=== PATIENT | female | born 1975 | race Caucasian/White ===

== ENCOUNTER → 2022-08-21 07:28 | Outpatient (BNVA) | payer BC, SELFPAY | PROVIDERS: PCP Internal Medicine; Visit Provider Physician Assistant | DX: Z13.89 Encounter for screening for other disorder (principal) ==

== ENCOUNTER 2022-08-21 08:01 | Outpatient (REF) | payer BC, SELFPAY ==
[2022-08-21 11:19] LABS: MANUAL DIFF FLAG NO
[2022-08-21 11:38] LABS: Basophils Absolute Auto 0.1 X10*3/uL (0.0-0.2); Basophils Percent Auto 0.8 % (0-2); Eosinophils Absolute Auto 0.2 X10*3/uL (0.0-0.4); Eosinophils Percent Auto 2.8 % (0-4); Hemoglobin 13.4 g/dl (12.0-16.0); Imm Gran Abs Auto 0.02 X10*3/uL (0.00-0.03); Imm Gran Pct Auto 0.3 % (0.0-0.4); Lymphocytes Absolute Auto 1.9 X10*3/uL (1.2-4.9); Lymphocytes Percent Auto 29.5 % (20-40); Mean Corpuscular HGB Conc 34.4 g/dl (31.0-35.0); Mean Corpuscular Hemoglobin 31.8 pg (27.0-33.0); Mean Corpuscular Volume 92.6 fL (80.0-98.0); Mean Platelet Volume 10.3 fL (9.4-12.3); Monocytes Absolute Auto 0.5 X10*3/uL (0.1-1.2); Monocytes Percent Auto 7.3 % (2-11); Neutrophils Absolute Auto 3.8 x10*3/uL (2.0-8.3); Neutrophils Percent Auto 59.3 % (45-73); Platelet Count 284 X10*3/uL (160-400); Red Blood Count 4.21 X10*6/uL (4.20-5.50); Red Cell Distribution Width 11.7 % (11.0-16.0); White Blood Count 6.4 X10*3/uL (4.8-10.8)
[2022-08-21 12:42] LABS: Alanine Aminotransferase 8 U/L (0-31); Albumin Level 4.2 g/dL (3.5-5.0); Alkaline Phosphatase 53 U/L (39-117); Anion Gap 12 (12-20); Aspartate Amino Transferase 15 U/L (5-31); Bilirubin Total 0.8 mg/dL (0.0-1.0); Blood Urea Nitrogen 16 mg/dL (9-16); Calcium 9.2 mg/dL (8.4-10.2); Carbon Dioxide 26 mmol/L (22-29); Chloride 108 mmol/L (96-108); Cholesterol 123 mg/dL; Estimated Glomerular Filt Rate > 60; Glucose Fasting 89 mg/dL (60-99); HDL Cholesterol 42 mg/dL; LDL Cholesterol Calculated 71 mg/dl; Potassium 4.5 mmol/L (3.3-5.1); Sodium 141 mmol/L (135-145); Total Protein 6.8 g/dL (6.5-8.0); Triglycerides 53 mg/dL
[2022-08-21 13:03] LABS: TSH reflex Free T4 1.12 uIU/mL (0.32-4.0); Vitamin D 25-OH Total 19.9 ng/mL (>30)
[2022-08-21 14:35] LABS: Folate 14.4 ng/mL (> or = 4.0); Vitamin B12 524 pg/mL (200-900)
== END 2022-08-21 08:02 | disposition home or self-care (01) ==
LOC: HO.WFDLDS 08:01
PROVIDERS: Visit Provider Nurse Practitioner Family
DX: Z00.00 Encounter for general adult medical examination without abnormal findings (principal); Z13.29 Encounter for screening for other suspected endocrine disorder; Z13.1 Encounter for screening for diabetes mellitus; Z13.220 Encounter for screening for lipoid disorders
CPT/HCPCS: 36415; 80053; 80061; 82306; 82607; 82746; 84443; 85025

== ENCOUNTER 2023-12-24 06:50 | Day surgery (SDC) | payer BC, SELFPAY ==
[2023-12-20 14:12] VITALS: BMI 26.5
--- NOTE | 2023-12-23 11:38 | HO.ANESPROP2 ---
Documented by User: Sonali Randolph NP 12/23/23 11:39 HPI - Anesthesia Eval Consult details Narrative: 48yo F for Colonoscopy PMFSH Active Problems Active Problems: All Active Problems Low vitamin D level (Acute) Screening for breast cancer (Acute) Overweight (BMI 25.0-29.9) (Acute) Screening for colon cancer (Acute) Hard of hearing (Acute) Screening for hypothyroidism (Acute) Screening for hyperlipidemia (Acute) Screening for diabetes mellitus (Acute) Adult general medical exam (Acute) Past Medical History Medical History Urinary incontinence Family History Family History Mother No problems noted. Father CVA (cerebral vascular accident) Diabetes Surgical History Surgical History Hx of cholecystectomy Social History Social History Household Members Other:: 2 kids Housing: House Patient Tobacco Use Status: Never used Tobacco Are you DNR?: No Advance Directives: No Advance Directives Information Provided: Yes Nutrition Risks: No Nutritional Risk FDLMP: IUD service: No Current occupational status: employed Cognitive needs: No Hearing needs: Yes (bilateral hearing aids) Vision needs: Yes Meds Allergies Allergy/AdvReac Type Severity Reaction Status Date / Time No Known Allergies Allergy Verified 12/24/23 07:51 Exam Height,Weight and Vital Signs: Height 5 ft 6 in Weight 74.389 kg Assessment and Plan Assessment Anesthesia Assessment: Chart Reviewed Documented by User: Violette Ceja MD 12/24/23 08:25 PMFSH Past Medical History Medical History Urinary incontinence Family History Family History Mother No problems noted. Father CVA (cerebral vascular accident) Diabetes Surgical History Surgical History Hx of cholecystectomy History of Problems with Anesthesia: No Social History Social History Household Members Other:: 2 kids Housing: House Patient Tobacco Use Status: Never used Tobacco Are you DNR?: No Advance Directives: No Advance Directives Information Provided: Yes Nutrition Risks: No Nutritional Risk FDLMP: IUD service: No Current occupational status: employed Cognitive needs: No Hearing needs: Yes (bilateral hearing aids) Vision needs: Yes Meds Allergies Allergy/AdvReac Type Severity Reaction Status Date / Time No Known Allergies Allergy Verified 12/24/23 07:51 Exam Airway Mallampati Class: II TM Dist: >3cm Neck ROM: Full Loose/Missing/Broken Teeth: No Heart: RRR Lungs: CTA Assessment and Plan Assessment Anesthesia Assessment: Anesthesia Plan Discussed Final Anesthetic Review History of Problems with Anesthesia: No NPO: Yes ASA Class: I Final Preanesthetic Review: Meds/Allgs Chart Reviewed, Consent Obtained/Reviewed and Anes Risks/Benef Reviewed Patient Risk: Low Procedure Risk: Low Anesthetic Plan Anesthetic Plan: MAC: Disposition: Standard PACU
[2023-12-24] MEDS: Lactated Ringers 1,000 ML 100 ML IVCONT (07:24)
[2023-12-24 07:41] VITALS: BP 107/58; PULSE 59; RESP 18; TEMP 36.7; O2SAT 100
[2023-12-24 07:43] VITALS: BMI 26.5
--- NOTE | 2023-12-24 08:06 | MHC.SHP ---
Pre-Procedural Eval Section A - 24 Hr Update-Section A only Date of Service: 12/24/23 Section B - Complete if H&P > 30 days Chief Complaint: Encounter for screening for malignant neoplasm of Details of Present Illness: Hx of cholecystectomy Relevant Social History: None Present Medications: see Short Stay Collaborative assessment Medical History: No relevant PMH Allergies: Allergies Allergy/AdvReac Type Severity Reaction Status Date / Time No Known Allergies Allergy Verified 12/24/23 07:51 Review of Systems Review of Systems Comment: Ten point ROS negative Exam Exam Comment: Gen appear: No acute distress HEENT: no icterus Chest: No overt resp distress Abd: soft, nontender, nondistended Psych: Stable affect, answering questions appropriately Neuro: A/Ox3 noted to move all extremities spontaneously Ext: no peripheral edema Plan Diagnosis/Plan: Unchanged I have reviewed the history and physical and performed a pertinent physical examination on my patient. No changes have occurred unless specified. Time Spent With Patient Time: Total time managing care of this patient today ____ minutes.
[2023-12-24 08:07] LABS: UPreg QC Valid YES; Urine Pregnancy NEGATIVE (NEGATIVE)
--- NOTE | 2023-12-24 08:40 | P.OPN-COLO_ITS ---
Colonoscopy Operative Note Operative Note Date of Service: 12/24/23 Narrative: Procedure: Colonoscopy Indication: Screening Endoscopist: Kimber Holman MD Anesthesia Provider: Dr Tatyana Ceja Anesthesia type: MAC Instrument: Olympus [id number]-[id number] Consent: Indication, risks vs benefits, and alternatives were discussed with the patient who gave written informed consent to proceed. EKG, pulse, pulse oximetry and blood pressure were monitored throughout the procedure. Please see anesthesia flowsheet. Procedure: The patient was brought to the procedure room and placed in the left lateral decubitus position. IV medications were administered by the anesthesia provider in attendance. A digital rectal exam was performed which was normal. A distal attachment cap was affixed to the tip of the colonoscope which was then inserted through the anus and advanced through the colon to the cecum at 75 cm, and terminal ileum. Appendiceal orifice and ileocecal valve were identified. Mucosa was carefully examined under high definition white light as the instrument was slowly withdrawn in a retrograde panoramic fashion. Retroflexion was performed in rectum. The procedure was not difficult. There were no immediate obvious complications. The quality of the prep was BBPS: 2+3+3 = adequate Withdrawal time 7 minutes. Limitations: No limitations. Findings: Mucosa: Normal to cecum and terminal ileum. Protruding lesions: * Medium internal hemorrhoids without stigmata of recent bleeding. Impression: 1. Normal colon and terminal ileum mucosa 2. Internal hemorrhoids Recommendations: - add fiber supplementation. Avoid constipation. - Repeat colonoscopy in 10 years for asymptomatic colorectal cancer screening
[2023-12-24 08:42] VITALS: BP 85/38; PULSE 61; RESP 18; TEMP 36.1; O2SAT 99
[2023-12-24 08:57] VITALS: BP 102/48; PULSE 68; RESP 16; O2SAT 99
[2023-12-24 09:12] VITALS: BP 98/50; PULSE 64; RESP 16; TEMP 36.1; O2SAT 99
== END 2023-12-24 09:37 | disposition home or self-care (01) ==
PROVIDERS: Nurse Practitioner; PCP Internal Medicine; Visit Provider Internal Medicine
PROC: 0DJD8ZZ Inspection of Lower Intestinal Tract, Via Natural or Artificial Opening Endoscopic (ICD-10-PCS; CPT 45378; principal; 2023-12-24 08:10)
DX: Z12.11 Encounter for screening for malignant neoplasm of colon (principal); K64.8 Other hemorrhoids
CPT/HCPCS: 45378; 81025; J2704

== ENCOUNTER → 2023-12-24 06:50 | Outpatient (BNV) | payer BC, SELFPAY | PROVIDERS: PCP Internal Medicine; Visit Provider Internal Medicine | DX: Z12.11 Encounter for screening for malignant neoplasm of colon (principal); K64.8 Other hemorrhoids | CPT/HCPCS: 45378 ==

== ENCOUNTER 2024-02-11 10:48 | Outpatient (AMB) | payer BC, SELFPAY ==
--- NOTE | 2024-02-11 10:51 | A.OFFPC_ITS ---
Vital Signs 02/11/24 10:52 Height 5 ft 6 in Weight 132 lb BMI 21.3 BP 132/80 Blood Pressure Location Lt brachial Position Sitting Pulse 57 Pulse Source Pulse Oximeter Pulse Oximetry (%) 98 Oxygen Delivery Method Room Air Intake Visit Reasons: annual exam Business Area Manager Required: No Supervisor Heading: Not Required per policy Accompanied by: Self / Same As Patient Allergies No Known Allergies Allergy (Verified 02/11/24 10:52) Medication List - Last Reconciled 02/11/24 by Rex Coto MD cholecalciferol (vitamin D3) 50 mcg PO DAILY Tobacco use date assessed: 02/11/24 Dental Screening Dental Screen Date: 02/11/24 Did you have a dental visit in the last 12 months?: Yes Did you have a dental problem in the last 6 months where you did not have access to dental care?: No Was dental information given to patient?: Patient has dentist HPI annual exam HPI Details healthy [facility] Medical History Urinary incontinence Surgical History Hx of cholecystectomy Family History Mother No problems noted. Father CVA (cerebral vascular accident) Diabetes Social History Household Members Other:: 2 kids Housing: House Patient Tobacco Use Status: Never used Tobacco e-Cigarette/Vaping Use: Never Used Second Hand Smoke Exposure: No service: No Current occupational status: employed Cognitive needs: No Hearing needs: Yes (bilateral hearing aids) Vision needs: Yes Questionnaire PHQ-9 Over the last 2 weeks, how often have you been bothered by any of the following problems? 1. Little interest or pleasure in doing things: not at all 2. Feeling down, depressed, or hopeless: not at all 3. Trouble falling or staying asleep, or sleeping too much: not at all 4. Feeling tired or having little energy: not at all 5. Poor appetite or overeating: not at all 6. Feeling bad about yourself - or that you are a failure or have let yourself or your family down: not at all 7. Trouble concentrating on things, such as reading the newspaper or watching television: not at all 8. Moving or speaking so slowly that other people could have noticed. Or the opposite - being so fidgety or restless that you have been moving around a lot more than usual: not at all 9. Thoughts that you would be better off or of hurting yourself in some way: not at all Total score: 0 Depression Screening Interpretation: Negative Depression Screening Done: Yes Source: Developed by Drs. Jose Preciado, Leonarda Wong, Sandor Pérez and colleagues, with an educational betsy from [employer]. Thrive Questionnaire Date Thrive assessed: 02/11/24 I am a: Patient What is your living situation today?: I have a steady place to live Within the past 12 months, did the food you bought not last and you didn't have the money to get more?: Never true Within the past 12 months, did you worry whether your food would run out before you got money to buy more?: Never true Do you have trouble paying for medicines?: No Do you have trouble getting transportation to medical appointments?: No Do you have trouble paying your heating and electricity bill?: No Do you have trouble taking care of your child, family member or friend?: No Do you have trouble with day-to-day activities such as bathing, preparing meals, shopping, managing finances, etc.?: No Are you currently unemployed and looking for a job?: No Are you interested in more education?: No Please select the resources that you would like help with: None THRIVE Score: 0 AUDIT C Alcohol Use Questionnaire (AUDIT-C) 1. How often do you have a drink containing alcohol?: Never 2. How many drinks containing alcohol do you have on a typical day when you are drinking?: 1 or 2 (0) 3. How often do you have six or more drinks on one occasion?: Never Total Score: 0 Score Reviewed/Action Taken: No CARMEN-7 AMB Questionnaire CARMEN-7 Date CARMEN - 7 assessed: 02/11/24 Feeling nervous, anxious, or on edge: 0 = Not at all Not being able to stop or control worryin = Not at all Worrying too much about different things: 0 = Not at all Trouble relaxin = Not at all Being so restless that it is hard to sit still: 0 = Not at all Becoming easily annoyed or irritable: 0 = Not at all Feeling afraid as if something awful might happen: 0 = Not at all Total CARMEN-7 score (0-4 normal; 5-9 mild; 10-14 moderate; 15-21 severe): 0 Source: Developed by Drs. Jose Preciado, Leonarda Wong, Sandor Pérez and colleagues, with an educational betsy from [employer]. Review of Systems Const Denies chills, Denies fatigue, Denies headache(s) and Denies weight loss Eyes Denies change in vision, Denies diplopia and Denies eye pain ENT Denies vertigo, Denies dizziness, Denies headache(s) and Denies nasal discharge Card Denies chest pain, Denies rapid heart rate and Denies dyspnea on exertion Resp Denies chest congestion, Denies cough, Denies pain with cough and Denies dyspnea on exertion GI Denies abdominal pain, Denies hematochezia and Denies change in bowel habits Musc Denies myalgias, Denies arthralgias and Denies joint swelling Skin/Breast Denies lesions and Denies unusual bruising Neuro Denies vertigo, Denies dizziness, Denies headache(s) and Denies focal weakness Endo Denies fatigue Physical exam (Primary Care) Vital Signs: Last Vital Signs Pulse 57 02/11/24 10:52 BP 132/80 02/11/24 10:52 Pulse Ox 98 02/11/24 10:52 Oxygen Delivery Method Room Air 02/11/24 10:52 BMI result Body Mass Index 21.3 Tobacco/Smoking Status: Tobacco use Status Tobacco use date assessed 02/11/24 02/11/24 10:53 Patient Tobacco Use Status Never used Tobacco 02/11/24 10:53 PHQ-9: PHQ-9 Score PHQ-9: Total score 0 02/11/24 10:53 Depression Screening Interpretation: Negative Thrive Assessment: Date of Thrive Assessment Date Thrive assessed 02/11/24 02/11/24 10:53 Const General: cooperative, healthy appearing and no acute distress Orientation/consciousness: oriented to person, oriented to place and oriented to time [facility] Head: Yes normal to inspection, Yes normocephalic and Yes atraumatic Mouth: Normal oral and palatal mucosa present and tongue normal Throat: Yes posterior oropharynx normal and Yes uvula midline Eyes General: appearance normal, both eyes and all related structures Neck Neck: Yes normal visual inspection, Yes full ROM and Yes no lymphadenopathy Thyroid: Thyroid normal Carotids: normal carotid upstroke Chest Chest palpation & inspection: normal inspection of the chest Resp Effort & Inspection: normal respiratory effort and able to speak in complete sentences Auscultation: clear to auscultation bilaterally Cardio Jugular venous distension: no JVD Palpation: normal PMI Rate: regular rate Rhythm: regular rhythm Heart sounds: S1 normal heart sound present and S2 normal heart sound present GI Inspection: Yes normal to inspection Palpation (GI): Soft to palpation and No hepatosplenomegaly present Auscultation: normal bowel sounds General: Yes no CVA tenderness Back/Spine/Pelvis Back: no CVA tenderness Skin General skin exam: no rashes or lesions noted Neuro General: oriented to person, oriented to place and oriented to time Extrem General: Yes normal to inspection and Yes full ROM Assessment and Plan Assessment & Plan (1) Physical exam: Code(s): Z00.00 - Encounter for general adult medical examination without abnormal findings Plan: do labs Orders: Orders Thyroid Stimulating Hormone Today Z13.29 - Encounter for screening for other suspected endocrine disorder Comprehensive [place]. Panel Fast Today Z13.9 - Encounter for screening, unspecified Vitamin D 25-OH Total Today Z13.9 - Encounter for screening, unspecified Lipid Panel Today Z13.220 - Encounter for screening for lipoid disorders Complete Blood Count Auto Diff Today Z13.0 - Encounter for screening for diseases of the blood and blood-forming organs and certain disorders involving the immune mechanism Coding Level of Care Code Est Pt Prev Care 40-64y(41828) Diagnoses Physical exam Z00.00 Additional Codes PHQ-9 - 41703 - PHQ-9 Billing: ([id number])
[2024-02-11 10:52] VITALS: BP 132/80; PULSE 57; O2SAT 98; BMI 21.3
== END 2024-02-11 12:12 | disposition home or self-care (01) ==
PROVIDERS: PCP Internal Medicine; Visit Provider Internal Medicine
DX: Z00.00 Encounter for general adult medical examination without abnormal findings (principal)
CPT/HCPCS: 99396

== ENCOUNTER 2024-02-11 11:21 | Outpatient (REF) | payer BC, SELFPAY ==
[2024-02-11 12:03] LABS: MANUAL DIFF FLAG NO
[2024-02-11 12:12] LABS: Basophils Absolute Auto 0.1 X10*3/uL (0.0-0.2); Basophils Percent Auto 0.8 % (0-2); Eosinophils Absolute Auto 0.1 X10*3/uL (0.0-0.4); Eosinophils Percent Auto 1.2 % (0-4); Hematocrit 38.8 % (37.0-47.0); Hemoglobin 13.2 g/dl (12.0-16.0); Imm Gran Abs Auto 0.02 X10*3/uL (0.00-0.03); Imm Gran Pct Auto 0.2 % (0.0-0.4); Lymphocytes Absolute Auto 2.3 X10*3/uL (1.2-4.9); Lymphocytes Percent Auto 27.3 % (20-40); Mean Corpuscular Hemoglobin 32.5 pg (27.0-33.0); Mean Corpuscular Volume 95.6 fL (80.0-98.0); Mean Platelet Volume 9.6 fL (9.4-12.3); Monocytes Absolute Auto 0.6 X10*3/uL (0.1-1.2); Monocytes Percent Auto 6.7 % (2-11); Neutrophils Absolute Auto 5.5 x10*3/uL (2.0-8.3); Neutrophils Percent Auto 63.8 % (45-73); Platelet Count 242 X10*3/uL (160-400); Red Blood Count 4.06 X10*6/uL (4.20-5.50); Red Cell Distribution Width 11.9 % (11.0-16.0); White Blood Count 8.6 X10*3/uL (4.8-10.8)
[2024-02-11 12:57] LABS: Alanine Aminotransferase 12 U/L (0-31); Albumin Level 4.4 g/dL (3.5-5.0); Alkaline Phosphatase 49 U/L (39-117); Anion Gap 11 (12-20); Aspartate Amino Transferase 17 U/L (5-31); Bilirubin Total 0.8 mg/dL (0.0-1.0); Blood Urea Nitrogen 13 mg/dL (9-16); Calcium 9.9 mg/dL (8.4-10.2); Carbon Dioxide 28 mmol/L (22-29); Chloride 106 mmol/L (96-108); Cholesterol 130 mg/dL (<200); Estimated Glomerular Filt Rate > 60; Glucose Fasting 89 mg/dL (60-99); HDL Cholesterol 57 mg/dL (>40); LDL Cholesterol Calculated 65 mg/dL (<100); Potassium 4.5 mmol/L (3.3-5.1); Sodium 140 mmol/L (135-145); Total Protein 7.3 g/dL (6.5-8.0); Triglycerides 42 mg/dL (<150)
[2024-02-11 12:59] LABS: Thyroid Stimulating Hormone 0.73 uIU/mL (0.32-4.0); Vitamin D 25-OH Total 31.1 ng/mL (>30)
== END 2024-02-11 11:22 | disposition home or self-care (01) ==
LOC: HO.LAB 11:21
PROVIDERS: PCP Internal Medicine; Visit Provider Internal Medicine
DX: Z13.0 Encounter for screening for diseases of the blood and blood-forming organs and certain disorders involving the immune mechanism (principal); Z13.220 Encounter for screening for lipoid disorders; Z13.9 Encounter for screening, unspecified; Z13.29 Encounter for screening for other suspected endocrine disorder
CPT/HCPCS: 36415; 80053; 80061; 82306; 84443; 85025

== ENCOUNTER 2024-08-03 10:23 | Outpatient (AMB) | payer BC, SELFPAY ==
--- NOTE | 2024-08-03 10:25 | A.OFFPC_ITS ---
Vital Signs 08/03/24 10:37 Height 5 ft 4.17 in Weight 140 lb 2 oz BMI 23.9 BP 108/76 Blood Pressure Location Rt brachial Position Sitting Pulse 57 Pulse Source Pulse Oximeter Pulse Oximetry (%) 99 Oxygen Delivery Method Room Air Intake Visit Reasons: est care from [place] Intake Note: New patient visit Manager Fire Required: No Allergies No Known Allergies Allergy (Verified 08/03/24 10:26) Tobacco use date assessed: 08/03/24 Dental Screening Dental Screen Date: 02/11/24 Did you have a dental visit in the last 12 months?: Yes Did you have a dental problem in the last 6 months where you did not have access to dental care?: No Was dental information given to patient?: Patient has dentist HPI HPI Comments History of Present Illness Details This a a 49 year old female with a past medical history of low Vitamin D presenting to [facility] care. Last annual 02/2024 Saw vascular -underwent recent laser prodecure for varicose veins. Dr Cordero. 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 Has IUD in place Mammogram UTD-Guillen. February-colonoscopy ROS CONSTITUTIONAL: Denies weight loss, fever and chills. HEENT: Denies changes in vision and hearing. RESPIRATORY: Denies SOB and cough. CV: Denies palpitations and CP GI: Denies abdominal pain, nausea, vomiting and diarrhea. : Denies dysuria and urinary frequency. MSK: Denies new myalgia and joint pain. SKIN: Denies rash and pruritus. NEUROLOGICAL: Denies headache PSYCHIATRIC: Denies recent changes in mood. PHYSICAL EXAM: GENERAL: Alert and oriented x 3. NAD EYES: EOMI. Anicteric. HENT: Moist mucous membranes. No scleral icterus. No cervical lymphadenopathy. LUNGS: Clear to auscultation bilaterally. CARDIOVASCULAR: Regular rate and rhythm. No murmur. No JVD. ABDOMEN: Soft, non-tender +bs EXTREMITIES: No edema. Non-tender. SKIN: No rashes or lesions. Warm. NEUROLOGIC: No focal neurological deficits. CN II-XII grossly intact PSYCHIATRIC: Cooperative. Appropriate mood and affect [facility] Medical History (Updated 08/14/24 @ 19:30 by Preethi Haque MD) Varicose vein of leg Urinary incontinence Surgical History Hx of cholecystectomy Family History Mother No problems noted. Father CVA (cerebral vascular accident) Diabetes Social History (Updated 08/03/24 @ 10:45 by Sakshi Cuello CMA) Household Members Other:: 2 kids Housing: House Alcohol intake: never Patient Tobacco Use Status: Never used Tobacco e-Cigarette/Vaping Use: Never Used Second Hand Smoke Exposure: No service: No Current occupational status: employed Current occupation: Teacher Current occupational exposures/hazards: No Cognitive needs: No Hearing needs: Yes (bilateral hearing aids) Vision needs: Yes Questionnaire PHQ-9 Over the last 2 weeks, how often have you been bothered by any of the following problems? 1. Little interest or pleasure in doing things: not at all 2. Feeling down, depressed, or hopeless: not at all 3. Trouble falling or staying asleep, or sleeping too much: not at all 4. Feeling tired or having little energy: not at all 5. Poor appetite or overeating: not at all 6. Feeling bad about yourself - or that you are a failure or have let yourself or your family down: not at all 7. Trouble concentrating on things, such as reading the newspaper or watching television: not at all 8. Moving or speaking so slowly that other people could have noticed. Or the opposite - being so fidgety or restless that you have been moving around a lot more than usual: not at all 9. Thoughts that you would be better off or of hurting yourself in some way: not at all Total score: 0 Depression Screening Interpretation: Negative Depression Screening Done: Yes 03519 - PHQ-9 Billing: Yes Source: Developed by Drs. Jose Preciado, Leonarda Wong, Sandor Pérez and colleagues, with an educational betsy from [employer]. Thrive Questionnaire Date Thrive assessed: 08/03/24 I am a: Patient What is your living situation today?: I have a steady place to live Within the past 12 months, did the food you bought not last and you didn't have the money to get more?: Never true Within the past 12 months, did you worry whether your food would run out before you got money to buy more?: Never true Do you have trouble paying for medicines?: No Do you have trouble getting transportation to medical appointments?: No Do you have trouble paying your heating and electricity bill?: No Do you have trouble taking care of your child, family member or friend?: No Do you have trouble with day-to-day activities such as bathing, preparing meals, shopping, managing finances, etc.?: No Are you currently unemployed and looking for a job?: No Are you interested in more education?: No Please select the resources that you would like help with: None Currently or been in a relationship where the following occur: No concerns rep orted THRIVE Score: 0 AUDIT C Alcohol Use Questionnaire (AUDIT-C) 1. How often do you have a drink containing alcohol?: Never 3. How often do you have six or more drinks on one occasion?: Never Total Score: 0 CARMEN-7 AMB Questionnaire CARMEN-7 Date CARMEN - 7 assessed: 08/03/24 Feeling nervous, anxious, or on edge: 0 = Not at all Not being able to stop or control worryin = Not at all Worrying too much about different things: 0 = Not at all Trouble relaxin = Not at all Being so restless that it is hard to sit still: 0 = Not at all Becoming easily annoyed or irritable: 0 = Not at all Feeling afraid as if something awful might happen: 0 = Not at all Total CARMEN-7 score (0-4 normal; 5-9 mild; 10-14 moderate; 15-21 severe): 0 Source: Developed by Drs. Jose Preciado, Leonarda Wong, Sandor Pérez and colleagues, with an educational betsy from [employer]. CARMEN-7 Assessment Billing CARMEN-7 Assessment Tool: CARMEN-7 Assessment 92038 Physical exam (Primary Care) Vital Signs: Last Vital Signs Pulse 57 08/03/24 10:37 BP 108/76 08/03/24 10:37 Pulse Ox 99 08/03/24 10:37 Oxygen Delivery Method Room Air 08/03/24 10:37 BMI result Body Mass Index 23.9 Tobacco/Smoking Status: Tobacco use Status Tobacco use date assessed 08/03/24 08/03/24 10:31 Patient Tobacco Use Status Never used Tobacco 08/03/24 10:45 e-Cigarette/Vaping Use Never Used 08/03/24 10:45 PHQ-9: PHQ-9 Score PHQ-9: Total score 0 08/03/24 10:48 Depression Screening Interpretation: Negative Thrive Assessment: Date of Thrive Assessment Date Thrive assessed 08/03/24 08/03/24 10:31 Currently or been in a relationship where the following occur: No concerns reported Coding Level of Care Code Est Pt Level 4 (80680) Diagnoses Encounter to establish care Z76.89 Hearing loss, unspecified hearing loss type, unspecified laterality H91.90 Hearing loss type: unspecified Laterality: unspecified laterality Additional Codes CARMEN-7 Assessment Billing - CARMEN-7 Assessment Tool: CARMEN-7 Assessment 54091 ([id number]) PHQ-9 - 27796 - PHQ-9 Billing: Yes ([id number]) Assessment & Plan Assessment & Plan (1) Encounter to establish care: Code(s): Z76.89 - Persons encountering health services in other specified circumstances Category: Medical Plan: 49 y/o to establish care. Past medical, surgical, social, and family history reviewed (2) Hard of hearing: Comment: Patient has bilateral hearing aids Code(s): H91.90 - Unspecified hearing loss, unspecified ear Category: Medical Qualifiers: Hearing loss type: unspecified Laterality: unspecified laterality Qualified Code(s): H91.90 - Unspecified hearing loss, unspecified ear Plan: referral ENT Orders: Referrals 2 Ophthalmology Referral Z01.00 - Encounter for examination of eyes and vision without abnormal findings Ear/Nose/Throat Referral H91.90 - Unspecified hearing loss, unspecified ear
[2024-08-03 10:37] VITALS: BP 108/76; PULSE 57; O2SAT 99; BMI 23.9
== END 2024-08-03 11:07 | disposition home or self-care (01) ==
PROVIDERS: PCP Internal Medicine; Visit Provider Internal Medicine
DX: Z76.89 Persons encountering health services in other specified circumstances (principal); H91.90 Unspecified hearing loss, unspecified ear

== ENCOUNTER 2025-06-25 14:49 | Outpatient (AMB) | payer BC, SELFPAY ==
--- NOTE | 2025-06-25 14:53 | MHC.PC.OV ---
Vital Signs 06/25/25 14:57 Height 5 ft 4.17 in Weight 132 lb BMI 22.5 BP 106/64 Blood Pressure Location Rt brachial Position Sitting Respiration 12 Pulse 61 Pulse Source Pulse Oximeter Temp 97.9 F Temp Source Oral Intake Visit Reasons: cpe - see comments Intake Note: Physical Family Worker Required: No Allergies No Known Allergies Allergy (Verified 06/25/25 14:56) Tobacco use date assessed: 06/25/25 Dental Screening Dental Screen Date: 06/25/25 Did you have a dental visit in the last 12 months?: Yes Did you have a dental problem in the last 6 months where you did not have access to dental care?: No Was dental information given to patient?: Patient has dentist HPI HPI Comments History of Present Illness Details This a a 49 year old female with a past medical history of low Vitamin D presenting for physical exam Follows with vascular - Dr Cordero. Continues to see [facility]. 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 Has IUD in place. Requests referral Mammogram 04/2025-had follow up diagnostic right & us and was reassuring December [id number]-19 years Flu shot today Tdap 12/2020 ROS CONSTITUTIONAL: Denies weight loss, fever and chills. HEENT: Denies changes in vision and hearing. RESPIRATORY: Denies SOB and cough. CV: Denies palpitations and CP GI: Denies abdominal pain, nausea, vomiting and diarrhea. : Denies dysuria and urinary frequency. MSK: Denies new myalgia and joint pain. SKIN: Denies rash and pruritus. NEUROLOGICAL: Denies headache PSYCHIATRIC: Denies recent changes in mood. PHYSICAL EXAM: GENERAL: Alert and oriented x 3. NAD EYES: EOMI. Anicteric. HENT: Moist mucous membranes. No scleral icterus. No cervical lymphadenopathy. LUNGS: Clear to auscultation bilaterally. CARDIOVASCULAR: Regular rate and rhythm. No murmur. No JVD. ABDOMEN: Soft, non-tender +bs EXTREMITIES: No edema. Non-tender. SKIN: No rashes or lesions. Warm. NEUROLOGIC: No focal neurological deficits. CN II-XII grossly intact PSYCHIATRIC: Cooperative. Appropriate mood and affect [facility] Medical History (Updated 04/22/25 @ 14:05 by Preethi Haque MD) Varicose vein of leg Urinary incontinence Surgical History Hx of cholecystectomy Family History Mother No problems noted. Father CVA (cerebral vascular accident) Diabetes Social History (Updated 08/03/24 @ 10:45 by Sakshi Cuello CMA) Household Members Other:: 2 kids Housing: House Alcohol intake: never Patient Tobacco Use Status: Never used Tobacco e-Cigarette/Vaping Use: Never Used Second Hand Smoke Exposure: No service: No Current occupational status: employed Current occupation: Teacher Current occupational exposures/hazards: No Cognitive needs: No Hearing needs: Yes (bilateral hearing aids) Vision needs: Yes Questionnaire PHQ-9 Over the last 2 weeks, how often have you been bothered by any of the following problems? 1. Little interest or pleasure in doing things: not at all 2. Feeling down, depressed, or hopeless: not at all 3. Trouble falling or staying asleep, or sleeping too much: not at all 4. Feeling tired or having little energy: not at all 5. Poor appetite or overeating: not at all 6. Feeling bad about yourself - or that you are a failure or have let yourself or your family down: not at all 7. Trouble concentrating on things, such as reading the newspaper or watching television: not at all 8. Moving or speaking so slowly that other people could have noticed. Or the opposite - being so fidgety or restless that you have been moving around a lot more than usual: not at all 9. Thoughts that you would be better off or of hurting yourself in some way: not at all Total score: 0 Depression Screening Interpretation: Negative Depression Screening Done: Yes 30670 - PHQ-9 Billing: Yes Source: Developed by Drs. Jose Preciado, Leonarda Wong, Sandor Pérez and colleagues, with an educational betsy from [employer]. Thrive Questionnaire Date Thrive assessed: 08/03/24 I am a: Patient What is your living situation today?: I have a steady place to live Within the past 12 months, did the food you bought not last and you didn't have the money to get more?: Never true Within the past 12 months, did you worry whether your food would run out before you got money to buy more?: Never true Do you have trouble paying for medicines?: No Do you have trouble getting transportation to medical appointments?: No Do you have trouble paying your heating and electricity bill?: No Do you have trouble taking care of your child, family member or friend?: No Do you have trouble with day-to-day activities such as bathing, preparing meals, shopping, managing finances, etc.?: No Are you currently unemployed and looking for a job?: No Are you interested in more education?: No Please select the resources that you would like help with: None Currently or been in a relationship where the following occur: No concerns reported THRIVE Score: 0 AUDIT C Alcohol Use Questionnaire (AUDIT-C) 1. How often do you have a drink containing alcohol?: Never 3. How often do you have six or more drinks on one occasion?: Never Total Score: 0 CARMEN-7 AMB Questionnaire CARMEN-7 Date CARMEN - 7 assessed: 08/03/24 Feeling nervous, anxious, or on edge: 0 = Not at all Not being able to stop or control worryin = Not at all Worrying too much about different things: 0 = Not at all Trouble relaxin = Not at all Being so restless that it is hard to sit still: 0 = Not at all Becoming easily annoyed or irritable: 0 = Not at all Feeling afraid as if something awful might happen: 0 = Not at all Total CARMEN-7 score (0-4 normal; 5-9 mild; 10-14 moderate; 15-21 severe): 0 Source: Developed by Drs. Jose Preciado, Leonarda Wong, Sandor Pérez and colleagues, with an educational betsy from [employer]. Physical exam (Primary Care) Vital Signs: Last Vital Signs Temp 97.9 F 06/25/25 14:57 Pulse 61 06/25/25 14:57 Resp 12 06/25/25 14:57 BP 106/64 06/25/25 14:57 BMI result Body Mass Index 22.5 Tobacco/Smoking Status: Tobacco use Status Tobacco use date assessed 06/25/25 06/25/25 15:04 Patient Tobacco Use Status Never used Tobacco 06/25/25 14:53 e-Cigarette/Vaping Use Never Used 06/25/25 14:53 PHQ-9: PHQ-9 Score PHQ-9: Total score 0 06/25/25 15:04 Depression Screening Interpretation: Negative Thrive Assessment: Date of Thrive Assessment Date Thrive assessed 08/03/24 06/25/25 14:53 Currently or been in a relationship where the following occur: No concerns reported Coding Level of Care Code Est Pt Prev Care 40-64y(85675) Diagnoses Physical exam Z00.00 Low vitamin D level R79.89 Hearing loss, unspecified hearing loss type, unspecified laterality H91.90 Hearing loss type: unspecified Laterality: unspecified laterality Additional Codes PHQ-9 - 51330 - PHQ-9 Billing: Yes ([id number]) Assessment & Plan Assessment & Plan (1) Physical exam: Code(s): Z00.00 - Encounter for general adult medical examination without abnormal findings Category: Medical (2) Low vitamin D level: Code(s): R79.89 - Other specified abnormal findings of blood chemistry Category: Medical (3) Hard of hearing: Comment: Patient has bilateral hearing aids Code(s): H91.90 - Unspecified hearing loss, unspecified ear Category: Medical Qualifiers: Hearing loss type: unspecified Laterality: unspecified laterality Qualified Code(s): H91.90 - Unspecified hearing loss, unspecified ear Plan 49 year old for CPE Interval history reviewed Preventive measures for age discussed Mammo,colonoscopy utd Flu shot today Referral placed to welcome wagon host/hostess Orders: Referrals [facility]ER Referral Z12.4 - Encounter for screening for malignant neoplasm of cervix
[2025-06-25 14:57] VITALS: BP 106/64; PULSE 61; RESP 12; TEMP 36.6; BMI 22.5
== END 2025-06-25 15:23 | disposition home or self-care (01) ==
LOC: HO.HMCFM 14:50
PROVIDERS: PCP Internal Medicine; Visit Provider Internal Medicine
DX: Z23 Encounter for immunization (principal)

== ENCOUNTER → 2025-06-25 14:49 | Outpatient (BNVA) | payer BC, SELFPAY | PROVIDERS: PCP Internal Medicine; Visit Provider Internal Medicine | DX: Z00.00 Encounter for general adult medical examination without abnormal findings (principal); Z23 Encounter for immunization; E55.9 Vitamin D deficiency, unspecified; H91.93 Unspecified hearing loss, bilateral; Z13.31 Encounter for screening for depression | CPT/HCPCS: 90471; 90656; 96127 ==